=== PATIENT | male | born 1945 | race Caucasian/White ===

== ENCOUNTER 2016-09-12 06:31 | Day surgery (SDC) | payer MEDICARE ==
--- NOTE | 2016-09-06 13:10 | PREOP HISTORY & PHYSICAL ---
HISTORY: 70 year old male here for evaluation of declining vision in both eyes with some glare symptoms (especially haloes around lights at night). He notes worsening depth perception and he is always closing his left eye in order to see the television and read. The patient lost his distance glasses a couple of months ago and has been using [id number] readers for near work. PAST OCULAR HISTORY: CCataract extraction with PC IOL OD 10/17/09 (Prochoda), Laser posterior capsulotomy OD 07/12/16 (Prochoda), Visually significant cataract OS, Compound myopic astigmatism and presbyopia OCULAR MEDICATIONS: Artificial tears OU prn only PAST MEDICAL HISTORY: Alcohol Abuse Cataract, nuclear sclerotic, left eye (366.16). Visually significant cataract OS. Tobacco abuse (305.1) ALLERGIES: Codeine/Codeine Derivatives (Tylenol 3, Vicodin, Percocet, Hydrocodone...). Caused petechia FAMILY HISTORY: No Significant Family Ocular History SOCIAL HISTORY: Alcohol Use. Heavy alcohol use. Tobacco Use. Smoker, current status unknown. Vehicle Driving. No. CURRENT MEDICATIONS: Aspirin (325MG Tablet, one tablet Oral daily) Active. Glucosamine Complex ( Oral daily) Active. Multivitamins (one capsule Oral daily) Active. Medications Reconciled. PAST SURGICAL HISTORY: Cataract Surgery. Cataract extraction with PC IOL OD 10/17/09 (Prochoda). Laser posterior capsulotomy OD 07/12/16 (Prochoda). Tonsillectomy. Age 76 years old. PHYSICAL EXAMINATION: OCULAR EXAMINATION: VISUAL ACUITY: without correction OD 20/30+ OS Counting fingers at 5 feet VISUAL ACUITY: with correction (Glasses) NEAR J1 at 14" WORKING Rx: ADD +2.50 (Talb-rcu-karkopr readers) MANIFEST REFRACTION: OD -0.50 + 0.75 x 015 (20/25) Better vision in trial frames OS -7.50 + 1.50 x 165 (20/100-1) Better vision in trial frames ADD + 2.50 (J1+ at 14") Better near vision in trial frames than previous Rx CONFRONTATIONAL VISUAL BARCLAY: Normal to counting fingers in four quadrants OU PUPILS: Round OU with mild anisocoria OS > OD. No afferent pupillary defect EXTERNAL: Normal OU EXTRA-OCULAR MUSCLES: Versions full OU - orthotropic at both distance and near SLIT LAMP EXAM: LIDS/LASHES: Moderate meibomian inspissation OU CONJUNCTIVA: Trace injected OU CORNEA: Clear with scant tear film OU AC: Deep and quiet OU IRIS: Normal OU PUPILS: Round OU - dilated to about 5-6 mm OU LENS: Central PC IOL post YAG laser capsulotomy OD 3-4+ dense yellow-brown nuclear sclerosis with 2-3+ cortical and 3+ diffuse posterior sub-capsular cataract changes in the visual axis OS ANTERIOR VITREOUS: No anterior vitreous cells or pigment seen OU TONOMETRY: TIME: 2:16 PM OD: 14 mm Hg OS: 14 mm Hg DILATING gtt: Phenylephrine 2.5% + Tropicamide 1% FUNDUS: C/D: 0.3 OU DISCS: Sharp with clear disc margins OU MACULA: Absent foveal reflex OU VESSELS: Normal OU PERIPHERY: Normal OU IMPRESSION: Cataract, nuclear sclerotic, left eye (H25.012) Advanced and neglected cataract OS - discussed with patient today who would like to proceed with cataract surgery OS. The patient had biometry performed on both eyes on , and because of the present extreme density of his cataract OS, optical biometry is not possible at this time. We will use the previous axial length measurements from 2009. We discussed the refractive goals today and the patient would like to be corrected to a near-plano spherical equivalent postoperatively OS. PLAN: Cataract extraction with intra-ocular lens OS, September 12, 2016. RADHA
[~2016-09-12 06:31] MED LIST: APRACLONIDINE 0.5% OPHTH 5 ML BTL OP ONE; BUPIVACAINE HCL/PF 0.75% 10 ML VIAL OP ONE; CIPROFLOXACIN 0.3% OPHTH 25 DROP/2.5 ML BTL OP SCH; CYCLOPENTOLATE HCL 1% OPHTH 2 ML BTL OP SCH; FLURBIPROFEN 0.03% OPHTH 2.5 ML BTL OP SCH; PHENYLEPHRINE 2.5% OPHTH 10 DROP/2 ML BTL OP SCH
[2016-09-12] MEDS ORDERED: APRACLONIDINE 0.5% OPHTH 5 ML BTL ONE (06:47)
[2016-09-12] MEDS ORDERED: CIPROFLOXACIN 0.3% OPHTH 25 DROP/2.5 ML BTL ONE (06:47)
[2016-09-12] MEDS ORDERED: BUPIVACAINE HCL/PF 0.75% 10 ML VIAL ONE (06:47)
[2016-09-12] MEDS ORDERED: FLURBIPROFEN 0.03% OPHTH 2.5 ML BTL ONE (06:47)
[2016-09-12] MEDS ORDERED: CYCLOPENTOLATE HCL 1% OPHTH 2 ML BTL ONE (06:47)
[2016-09-12] MEDS ORDERED: PHENYLEPHRINE 2.5% OPHTH 10 DROP/2 ML BTL ONE (06:47)
[2016-09-12] MEDS ORDERED: KETOROLAC 0.45% OPHTH 1 DROP/EACH DROPERETTE ONE (07:03)
[2016-09-12] MEDS ORDERED: BACITRACIN OPHTH OINTMENT 3.5 GM TUBE ONE (07:03)
[2016-09-12] MEDS ORDERED: LIDOCAINE HCL/PF 1% 30 ML VIAL ONE (07:03)
[2016-09-12] MEDS ORDERED: CHONDROITIN/HYALURONIDATE OPHT 0.5 ML KIT ONE (07:04)
[2016-09-12 07:05] VITALS: RESP 12; TEMP 97.5
[2016-09-12 07:26] VITALS: BP 139/72; PULSE 30; O2SAT 89
== END 2016-09-12 07:30 | disposition short-term general hospital (02) ==
LOC: SDS 06:31
PROVIDERS: ATTEND Ophthalmology
DX: H25.012 Cortical age-related cataract, left eye (principal); I48.2 Chronic atrial fibrillation; R09.02 Hypoxemia
CPT/HCPCS: J0171

== ENCOUNTER 2016-09-12 07:27 | Emergency (ER) | payer MEDICARE ==
[2016-09-12 07:56] LABS: BASOPHILS 0.3 % (0.0-2.0); EOSINOPHILS 0.9 % (0.0-6.0); EOSINOPHILS# 0.1 X 10^3uL (0.0-0.4); HEMATOCRIT 52.2 % (42.0-54.0); HEMOGLOBIN 17.4 g/dL (14.0-18.0); LYMPHOCYTES 32.7 % (20.0-40.0); LYMPHOCYTES# 2.5 X 10^3uL (0.8-3.8); MEAN CELL VOLUME 104.1 fL (84.0-102.0); MEAN CORPUS. HGB CONCENTRATION 33.3 g/dL (32.0-36.0); MEAN CORPUSCULAR HEMOGLOBIN 34.7 pg (29.0-35.0); MEAN PLATELET VOLUME 7.6 fL (7.4-10.4); MONOCYTES# 0.7 X 10^3uL (0.2-1.0); NEUTROPHILS 57.1 % (54.0-75.0); NEUTROPHILS# 4.2 X 10^3uL (2.6-6.7); PLATELET COUNT 223 X 10^3uL (130-440); RED BLOOD COUNT 5.01 X 10^6uL (4.20-6.10); RED CELL DISTRIBUTION WIDTH 13.3 % (11.5-14.5); WHITE BLOOD COUNT 7.6 X 10^3uL (3.9-10.7)
[2016-09-12 08:04] LABS: BLOOD UREA NITROGEN 15 mg/dL (9-20); CALCIUM 9.2 mg/dL (8.4-10.2); CHLORIDE 102 mmol/L (98-107); CREATININE 0.9 mg/dL (0.7-1.3); EST GLOMERULAR FILTRATION RATE > 60 mL/min; GLUCOSE 105 mg/dL (70-100); MAGNESIUM 1.8 mg/dL (1.6-2.3); POTASSIUM 4.3 mmol/L (3.5-5.1); SODIUM 136 mmol/L (137-145)
[2016-09-12 08:16] LABS: TROPONIN I 0.026 ng/mL (0.00-0.034)
--- NOTE | 2016-09-12 09:25 | ER NURSING DOCUMENTATION ---
Nurse's Notes [facility] Name:Hussein Tirado Age:70 yrs Sex:Male :1945 Arrival Date:09/12/2016 Time:07:27 BedTrauma C Private MD:Em Parks Diagnosis:Bradycardia Presentation: 09/12 07:30 Presenting complaint: Patient states: pt cam in for cataract surgery today and was st found to have a heart rate in the low 30s and an o2 saturating at 84%. pt only complaint is being a little tired as of late. pt was brought down her. Transition of care: Other Surgery. Care prior to arrival: 12 lead EKG Oxygen administered. 07:30 Method Of Arrival: Other st 07:33 Acuity: BILL 2 st Triage Assessment: 07:30 General: Appears in no apparent distress, Behavior is cooperative, disgruntled at not st getting surgery today.. Pain: Denies pain. Neuro: No deficits noted. Cardiovascular: Heart tones present Pulses are all present. iragular Reports fatigue, Rhythm is atrial flutter 5:1. Respiratory: Airway is patent Respiratory effort is even, unlabored, Respiratory pattern is regular, symmetrical, Breath sounds with rhonchi bilaterally. Breath sounds are diminished bilaterally. GI: No deficits noted. Derm: Skin is dusky. Historical: - Allergies: codeine sulfate; - Home Meds: 1. Aspirin Oral 2. multivitamin with minerals oral - PMHx: lbbb; CHF; atrial flutter; - Tetanus: unknown. - Ebola Screening: : Patient denies exposure to infectious person. Patient denies travel to an Ebola-affected area in the 21 days before illness onset. . - Immunization history: Pneumococcal vaccine status is unknown. - Social history: Smoking status: . Screenin:57 Infectious Disease Risk None. Abuse screen: Denies threats or abuse. Denies injuries st from another. pt feels safe at home. Nutritional screening: No deficits noted. Assessment: 07:32 General: pt coming over from surgery for low o2 saturation and slow heart rate.. st 08:21 General: pt resting quietly. Pt continues to have no complaints. pt continues to be st consistently in a-flutter 5:1 with a rate of 31. . Vital Signs: 07:30 BP 151 / 71; Pulse 31; Resp 25; Temp 98.5; Pulse Ox 93% on 6 lpm NC; Weight 97.52 kg; st Height 6 ft. 4 in. (193.04 cm); Pain 0/10; 08:00 BP 132 / 59; Pulse 24; Resp 22; Pulse Ox 91% on 6 lpm NC; Pain 0/10; st 08:15 Pulse 34; Resp 20; st 08:32 BP 134 / 58; Pulse 30; Resp 21; Pulse Ox 92% on 6 lpm NC; st 08:46 BP 125 / 59; Pulse 30; Resp 20; Pulse Ox 90% on 6 lpm NC; st 07:30 Body Mass Index 26.17 (97.52 kg, 193.04 cm) st ED Course: 07:30 Patient arrived in ED. ds 07:30 Valuables Remains with patient Patient has correct armband on for positive st identification. Placed in gown. Bed in low position. Call light in reach. Side rails up X2. information clerk on. Pulse ox on. NIBP on. 07:31 Em Parks DO is Private Physician. ds 07:32 Melani Moran RN is Primary Nurse. st 07:[address] 07:45 Inserted peripheral IV: 20 gauge in left antecubital area and blood collected. st 07:53 Joshua Barahona MD is Attending Physician. tl1 07:58 Oxygen Oxygen administration via nasal cannula @ 6L/min. st 08:00 Port Xray Completed. pm1 08:[address] Administered Medications: No medications were administered Outcome: 08:39 ER care complete, transfer ordered by MD. tl1 08:52 Transferred: Patient will be transferred to: [facility]. st 08:57 Transferred: Facility Acceptance Time: September 12, 2016 at 08:57 st 09:10 Condition: Guarded. st 09:10 Report given to Nena KESSLER 09:10 Instructed on need for transfer 09:23 Transferred: Patient's face sheet was faxed to accepting facility. Face Sheet included st patient's name, address, age, gender, contact information and insurance information. Patient will be transported by: [facility] ground. Nurse and Physician Charting and Notes were sent to Accepting Facility. All tests and/or procedures with results, if applicable, were sent to accepting facility. 09:24 Patient [address] ED[address] st Signatures: Melani Moran RN RN st ot, Kathy, Reg Reg ds Hillary Guerrero pm1 Joshua Barahona MD MD tl1
--- NOTE | 2016-09-12 09:25 | ER PHYSICIAN DOCUMENTATION ---
Physician Documentation [facility] Name:Hussein Tirado Age:70 yrs Sex:Male :1945 Arrival Date:09/12/2016 Time:07:27 BedTrauma C Private MD:Em Parks ED, Tom Disposition: 09/12 10:00 Critical Care: not applicable. Chart complete. Chart complete. tl1 Disposition: 09/12/16 08:39 Transfer ordered to [facility]. Diagnosis is Bradycardia. - Reason for transfer: Specialty. - Accepting physician is Dr Chávez. - Condition is Fair. - Problem is new. - Symptoms are unchanged. COBRA Form completed? Yes Transfer - Mode of Transportation Ambulance HPI: 08:40 This 70 yrs old Male presents to ER via Other with unknown complaint. tl1 09:10 He has a h/o cardiomyopathy and a flutter with LBBB. He showed up for cataract surgery tl1 this AM and had a pulse of 33, and RA O2 sats in the 70's. He was otherwise asymptomatic except for some occasional lightheadedness and a little ROBERTS. Denies CP, PALP, LE pain or swelling, f/c/s/n/v.. Historical: - Allergies: codeine sulfate; - Home Meds: 1. Aspirin Oral 2. multivitamin with minerals oral - PMHx: lbbb; CHF; atrial flutter; - Tetanus: unknown. - Ebola Screening: : Patient denies exposure to infectious person. Patient denies travel to an Ebola-affected area in the 21 days before illness onset. . - Immunization history: Pneumococcal vaccine status is unknown. - Social history: Smoking status: . ROS: 09:13 Cardiovascular: Negative for chest pain, edema, orthopnea, palpitations, paroxysmal tl1 nocturnal dyspnea. 09:13 Respiratory: Positive for shortness of breath. 09:13 Neuro: Positive for dizziness. 09:13 All other systems are negative. Exam: 09:14 Constitutional: This is a well developed, well nourished patient who is awake, alert, tl1 and in no acute distress. Head/Face: Normocephalic, atraumatic. Neck: Trachea midline, no thyromegaly or masses palpated, and no cervical lymphadenopathy. Supple, full range of motion without nuchal rigidity, or vertebral point tenderness. No Meningismus. 09:14 Chest/axilla: Normal chest wall appearance and motion. Nontender with no deformity. tl1 No lesions are appreciated. 09:14 Cardiovascular: Rate: bradycardic, Rhythm: irregular, Pulses: Pulses are 2+ in right radial artery and left radial artery. Heart sounds: normal, normal S1and S2, no S3 or S4, no murmur, no rub, no gallop, Edema: is not appreciated, JVD: is noted on the right, to the angle of the jaw. 09:14 Respiratory: the patient does not display signs of respiratory distress, Respirations: normal, Breath sounds: decreased breath sounds, that are moderate. Vital Signs: 07:30 BP 151 / 71; Pulse 31; Resp 25; Temp 98.5; Pulse Ox 93% on 6 lpm NC; Weight 97.52 kg; st Height 6 ft. 4 in. (193.04 cm); Pain 0/10; 08:00 BP 132 / 59; Pulse 24; Resp 22; Pulse Ox 91% on 6 lpm NC; Pain 0/10; st 08:15 Pulse 34; Resp 20; st 08:32 BP 134 / 58; Pulse 30; Resp 21; Pulse Ox 92% on 6 lpm NC; st 08:46 BP 125 / 59; Pulse 30; Resp 20; Pulse Ox 90% on 6 lpm NC; st 07:30 Body Mass Index 26.17 (97.52 kg, 193.04 cm) st MDM: 07:53 Patient medically screened. tl1 08:[address] 09:00 Antibiotic administration: Not indicated. tl1 09:15 Differential diagnosis: Atrial flutter with very slow ventricular response. Data tl1 reviewed: vital signs, nurses notes, old medical records, lab test result(s), EKG, and as a result, I will *Transfer Patient. Data interpreted: monitoring engineer: Pulse oximetry:. Test interpretation: by ED physician or midlevel provider: ECG. Counseling: I had a detailed discussion with the patient and/or guardian regarding: the historical points, exam findings, and any diagnostic results supporting the discharge/admit diagnosis, lab results, radiology results, the need for outpatient follow up, to return to the emergency department if symptoms worsen or persist or if there are any questions or concerns that arise at home. ECG:. 09/12 08:11 Order name: CBC AUTO DIF, MDIF/RMOR IF IND; Complete Time: 10:35 EDMS 09/12 10:33 Interpretation: WHITE BLOOD COUNT 7.6; HEMOGLOBIN 17.4; HEMATOCRIT 52.2; MEAN CELL tl1 VOLUME 104.1; PLATELET COUNT 223. 09/12 08:17 Order name: DDIMER; Complete Time: 10:35 EDMS 09/12 10:34 Interpretation: Normal: DDIMER 261. tl1 09/12 08:19 Order name: BASIC METABOLIC PANEL; Complete Time: 10:35 EDMS 09/12 10:34 Interpretation: SODIUM 136; POTASSIUM 4.3; CHLORIDE 102; CARBON DIOXIDE 26; GLUCOSE tl1 105; BLOOD UREA NITROGEN 15; CREATININE 0.9; CALCIUM 9.2. 09/12 08:19 Order name: MAGNESIUM; Complete Time: 10:35 EDMS 09/12 10:34 Interpretation: Normal: MAGNESIUM 1.8. tl1 09/12 08:19 Order name: TROPONIN I; Complete Time: 10:35 EDMS 09/12 10:34 Interpretation: Normal: TROPONIN I 0.026. tl1 09/12 07:46 Order name: Oxygen; Complete Time: 07:47 st 09/12 07:59 Order name: Continuous Cardiac Monitoring; Complete Time: 07:59 st 09/12 07:59 Order name: Pulse Ox Continuous; Complete Time: 07:59 st EC:18 Rate is 31 beats/min. Rhythm is regular, A flutter with Left bundle branch block. QRS tl1 interval is prolonged at 16 msec. QT interval is normal at 684 msec. No Q waves. Clinical impression: Atrial Flutter and with very slow ventricular response. Interpreted by me. Reviewed by me. Dispensed Medications: No medications were administered Signatures: Melani Moran, RN Joshua Roque MD MD tl1
--- NOTE | 2016-09-12 10:47 | RADIOLOGY REPORT ---
A limited single portable view of the chest, without prior films for comparison , demonstrates the heart, vessels and lungs to be unremarkable. No infiltrate, fluid or pneumothorax is seen. IMPRESSION: Unremarkable limited single portable view of the chest. MTDD
== END 2016-09-12 09:24 | disposition short-term general hospital (02) ==
LOC: ER 07:27
DX: R00.1 Bradycardia, unspecified (principal); R42 Dizziness and giddiness; R06.02 Shortness of breath; I48.92 Unspecified atrial flutter; I44.7 Left bundle-branch block, unspecified; R79.1 Abnormal coagulation profile; Z79.82 Long term (current) use of aspirin; Z74.3 Need for continuous supervision
CPT/HCPCS: 71010; 80048; 83735; 84484; 85025; 85379; 93005; 99285; A0425; A0427

== ENCOUNTER 2017-02-13 08:21 | Day surgery (SDC) | payer MEDICARE ==
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
[~2017-02-13 08:21] MED LIST changes: -APRACLONIDINE 0.5% OPHTH 5 ML BTL OP ONE; +APRACLONIDINE 0.5% OPHTH 5 ML BTL OP PRN; -BUPIVACAINE HCL/PF 0.75% 10 ML VIAL OP ONE; +BUPIVACAINE HCL/PF 0.75% 10 ML VIAL OP PRN; -CIPROFLOXACIN 0.3% OPHTH 25 DROP/2.5 ML BTL OP SCH; +CIPROFLOXACIN 0.3% OPHTH 50 DROP/5 ML BTL OP SCH
[2017-02-13 08:52] VITALS: PULSE 80
[2017-02-13] MEDS ORDERED: CYCLOPENTOLATE HCL 1% OPHTH 2 ML BTL ONE (09:19)
[2017-02-13] MEDS ORDERED: BUPIVACAINE HCL/PF 0.75% 10 ML VIAL ONE (09:19)
[2017-02-13] MEDS ORDERED: PHENYLEPHRINE 2.5% OPHTH 10 DROP/2 ML BTL ONE (09:19)
[2017-02-13] MEDS ORDERED: CIPROFLOXACIN 0.3% OPHTH 50 DROP/5 ML BTL ONE (09:19)
[2017-02-13] MEDS ORDERED: APRACLONIDINE 0.5% OPHTH 5 ML BTL ONE (09:19)
[2017-02-13] MEDS ORDERED: FLURBIPROFEN 0.03% OPHTH 2.5 ML BTL ONE (09:19)
[2017-02-13] MEDS ORDERED: CHONDROITIN/HYALURONIDATE OPHT 0.5 ML KIT ONE (09:52)
[2017-02-13] MEDS ORDERED: BACITRACIN OPHTH OINTMENT 3.5 GM TUBE ONE (09:52)
[2017-02-13] MEDS ORDERED: KETOROLAC 0.45% OPHTH 1 DROP/EACH DROPERETTE ONE (09:52)
[2017-02-13] MEDS ORDERED: LIDOCAINE HCL/PF 1% 30 ML VIAL ONE (09:52)
[2017-02-13 10:34] VITALS: RESP 12; O2SAT 88
[2017-02-13 10:42] VITALS: BP 136/87
--- NOTE | 2017-02-13 11:09 | OPERATIVE REPORT ---
DATE OF SURGERY: 02/13/2017. SURGEON: Paulino Lawrence MD ANESTHESIA: Topical with monitored anesthesia care. PREOPERATIVE DIAGNOSIS: Cataract, left eye. POSTOPERATIVE DIAGNOSIS: Cataract, left eye. OPERATION PERFORMED: Cataract extraction by phacoemulsification with posterior chamber intraocular lens, left eye. COMPLICATIONS: None. PROCEDURE: The patient was brought to the operating room where he was placed in the supine position. After the instillation of additional tetracaine drops in the left eye, the eye was prepped and draped in the usual sterile ophthalmic manner. A lid speculum was placed in the left eye, after which an inferior paracentesis was fashioned with 1-mm steel keratome, and 0.2 mL of 1% nonpreserved lidocaine was injected intracamerally followed by Viscoat. A temporal clear corneal incision of 3-mm width was fashioned with a steel keratome. A continuous curvilinear capsulorrhexis was fashioned with a bent-needle cystitome and Utrata forceps under Viscoat. Hydrodissection was carried out with balanced salt solution on an intraocular cannula. The nucleus was noted to rotate freely. Phacoemulsification proceeded in a two-handed fashion utilizing very high phacoemulsification times and ball, as the nucleus was noted to be 3-4+ dense. Residual cortical material was then removed with the automated irrigation-aspiration handpiece. The anterior chamber and capsular bag were then reinflated with Provisc, after which an AcrySof model SA60AT foldable acrylic intraocular lens of 16.0 diopters power was placed into the capsular bag. The haptics were rotated with a Y hook and the intraocular lens was noted to center well. Residual viscoelastic was then removed with the automated irrigation-aspiration handpiece , after which the wound edges were hydrated with balanced salt solution. The intraocular pressure at the conclusion of the procedure was physiologic, and there was no evidence of wound leakage upon testing with a Weck Eunice sponge. Acular drops and bacitracin ointment were placed in the left eye, and the patient was brought to the recovery area, having tolerated the procedure well. He was given full postoperative instructions. RADHA
== END 2017-02-13 10:50 | disposition home or self-care (01) ==
LOC: SDS 08:21
PROVIDERS: ATTEND Ophthalmology
DX: H25.12 Age-related nuclear cataract, left eye (principal); Z96.1 Presence of intraocular lens; I48.92 Unspecified atrial flutter; E83.52 Hypercalcemia; D75.1 Secondary polycythemia; Z72.0 Tobacco use; R25.1 Tremor, unspecified
CPT/HCPCS: 66984; J0171; V2632